=== PATIENT | male | born 1970 | race Two or more races ===

== ENCOUNTER 2024-01-23 17:25 | Emergency (ER) | payer MEDICAID ==
[~2024-01-23] VITALS: Ht 160 cm; Wt 38.6 kg
[2024-01-23] MEDS ORDERED: NIFE30TA91 PO (18:00)
[2024-01-23] MEDS ORDERED: PATI8.4P PO (18:00)
[2024-01-23] MEDS ORDERED: FOLI0.8T2 PO (18:00)
[2024-01-23] MEDS ORDERED: FERR-56 PO (18:00)
[2024-01-23] MEDS ORDERED: CYAN500T9 PO (18:00)
[2024-01-23] MEDS ORDERED: HYDR-4209 PO (18:00)
[2024-01-23] MEDS ORDERED: SUCR500T PO (18:00)
[2024-01-23] MEDS ORDERED: CLON0.1T PO (18:00)
[2024-01-23] MEDS ORDERED: PREG50CA PO (18:00)
[2024-01-23] MEDS ORDERED: CHOL10005 PO (18:00)
[2024-01-23] MEDS ORDERED: LEVE250T2 PO (18:00)
[2024-01-23] MEDS ORDERED: ASCO500C18 PO (18:00)
[2024-01-23] MEDS ORDERED: INSU100V7 SQ (18:00)
[2024-01-23] MEDS ORDERED: INSU100V39 SQ (18:00)
[2024-01-23] MEDS ORDERED: POLY17PO4 PO (18:00)
[2024-01-23] MEDS ORDERED: OXYC5CAP18 PO (18:00)
[2024-01-23 18:36] LABS: BASOPHILS # (AUTO) 0.1 K/UL (0.0-0.2); BASOPHILS % (AUTO) 1.1 % (0.0-2.0); EOSINOPHILS % (AUTO) 0.4 % (0.0-7.0); HEMOGLOBIN 12.2 g/dL (12.5-16.3); LYMPHOCYTES # (AUTO) 3.2 K/uL (0.8-4.8); MEAN CORPUSCULAR HEMOGLOBIN 29.3 uug (23.8-33.4); MEAN CORPUSCULAR HGB CONC 32 g/dL (32.5-36.3); MEAN CORPUSCULAR VOLUME 91.5 fL (73.0-96.2); MONOCYTES # (AUTO) 1.4 K/uL (0.1-1.30); MONOCYTES % (AUTO) 11.5 % (0.0-11.0); PLATELET COUNT (AUTO) 223 K/uL (152-348); RED BLOOD CELL COUNT(AUTO) 4.16 MIL/uL (4.06-5.63); RED CELL DISTRIBUTION WIDTH 14.9 % (12.1-16.2); WHITE BLOOD COUNT (AUTO) 11.7 K/uL (3.6-10.2)
[2024-01-23 18:40] LABS: DIFFERENTIAL COMMENT 1
[2024-01-23] MEDS ORDERED: HYDROMORPHONE HCL 2 MG TABLET ONE (18:40)
[2024-01-23] MEDS ORDERED: ONDANSETRON 4 MG/2 ML VIAL ONE (18:40)
[2024-01-23 18:50] LABS: CALCIUM 8.2 mg/dL (8.5-10.1); CREATININE 3.9 mg/dL (0.6-1.3); POTASSIUM 4.6 mmol/L (3.5-5.1)
[2024-01-23 18:55] LABS: ALBUMIN 3.2 g/dL (3.4-5.0); BILIRUBIN,DIRECT 0.2 mg/dL (0.0-0.2); BILIRUBIN,TOTAL 0.8 mg/dL (0.2-1.0); TOTAL PROTEIN, SERUM 7.7 g/dL (6.4-8.2)
[2024-01-23 18:59] LABS: MAGNESIUM 1.9 mg/dL (1.8-2.4); PHOSPHOROUS 5.1 mg/dL (2.5-4.9)
[2024-01-23] MEDS: ONDANSETRON 4 MG/2 ML VIAL IV ONE (18:59)
[2024-01-23] MEDS: HYDROMORPHONE HCL 2 MG TABLET PO ONE (18:59)
[2024-01-23 21:09] VITALS: BP 177/90; TEMP 98; O2SAT 100
== END 2024-01-23 21:10 ==
LOC: ER 17:27
DX: R10.31 Right lower quadrant pain (principal); G40.909 Epilepsy, unspecified, not intractable, without status epilepticus; E78.5 Hyperlipidemia, unspecified; E11.22 Type 2 diabetes mellitus with diabetic chronic kidney disease; E11.40 Type 2 diabetes mellitus with diabetic neuropathy, unspecified; N18.6 End stage renal disease; Z79.899 Other long term (current) drug therapy; Z99.2 Dependence on renal dialysis
CPT/HCPCS: 99285; 74176; 96374; 71045; 80076; 80048; 83690; 83735; 84100; 85025; 84484; 36415; 93005; J2405; A4606; A4663